=== PATIENT | male | born 1970 | race Hispanic/Latino ===

== ENCOUNTER 2023-03-19 22:55 | Emergency (ER) | payer SELFPAY ==
[2023-03-19] MEDS ORDERED: Acetaminophen 500 MG TAB ONE (23:21)
[2023-03-19] MEDS ORDERED: Cephalexin 250 MG CAP ONE (23:21)
[2023-03-19] MEDS ORDERED: Sulfameth/Trimethoprim DS 800-160mg TAB ONE (23:28)
== END 2023-03-19 23:34 | disposition home or self-care (01) ==
LOC: BURERS 22:55
DX: L03.115 Cellulitis of right lower limb (principal)
CPT/HCPCS: 99283